=== PATIENT | female | born 1950 | race Caucasian/White ===

== ENCOUNTER 2022-02-11 10:01 | Outpatient (CLI) | payer MEDICARE, BC, SELFPAY | END 2022-02-11 10:02 | disposition home or self-care (01) | LOC: INJ CL 10:04 | PROVIDERS: PCP Family Medicine; Visit Provider Family Medicine | DX: M54.16 Radiculopathy, lumbar region (principal); M51.36 Other intervertebral disc degeneration, lumbar region | CPT/HCPCS: 62323; J0702; Q9966 ==

== ENCOUNTER 2022-10-10 18:19 | Emergency (ER) | payer MEDICARE, BC, SELFPAY ==
[2022-10-10 18:25] VITALS: BP 156/61; PULSE 70; RESP 34; TEMP 36.6; O2SAT 98
--- NOTE | 2022-10-10 18:37 | CRLHL7_ITS ---
For Patients: As a result of the Cures Act, medical imaging exams and procedure reports are released immediately into your electronic medical record. You may view this report before your referring provider. If you have questions, please contact your health care provider. INDICATION: Shortness of breath. COMPARISON: 11/24/2016. FINDINGS: PA and lateral views of the chest were obtained. The cardiac silhouette and pulmonary vasculature are within normal limits. The lungs are clear bilaterally. There is scoliosis and degenerative changes in the spine. There are atherosclerotic calcifications in the aorta. IMPRESSION: No evidence of acute pulmonary disease. Dictated by Med Olvrea MD @ 10/10/2022 7:23:35 PM (Electronically Signed)
--- NOTE | 2022-10-10 19:01 | ED.GENADULT ---
HPI - General Adult General Chief complaint: Weakness <Enedina Reyna MD - Last Filed: 10/10/22 20:02> Stated complaint: Weakness <Enedina Reyna MD - Last Filed: 10/10/22 20:02> Time Seen by Provider: 10/10/22 18:36 <Enedina Reyna MD - Last Filed: 10/10/22 20:02> Source: patient <Enedina Reyna MD - Last Filed: 10/10/22 20:02> Mode of arrival: ambulatory <Enedina Reyna MD - Last Filed: 10/10/22 20:02> Limitations: no limitations <Enedina Reyna MD - Last Filed: 10/10/22 20:02> History of Present Illness HPI narrative: 72-year-old female coming in today complaining of generalized not feeling well for about a year. Feeling does come and go. She feel shaky sometimes and nauseated. She has had a decreased appetite. She does sleep well at night. She states that she was diagnosed with hyperthyroidism recently and she has an appointment with endocrinology in November for further testing. In the meantime she states that they put her on atenolol to help with her symptoms. She is concerned and wanted to see someone sooner so she came to the ER. She states that she has lost a significant amount of weight in the last 9 months. She feels very tired most of the day. She feels like her muscles are always fatigued it much sooner than normal. She states that she has a hard time even doing things like finishing grocery shopping because her legs feel so tired. She is not certain if her symptoms are because of her untreated hyper thyroidism or if there is something else going on. She does deny chest pain but states that she is constantly short of breath. States that she smokes about 3/4 to a pack of cigarettes per day for the last 55 years, shortness of breath is not new for her. She denies any abdominal discomfort, no recent vomiting. She has diarrhea that alternates with constipation which is not new. She denies any urinary symptoms. Past medical history significant for hyperthyroidism, hypertension, hyperlipidemia, depression, asthma. <Enedina Reyna MD - Last Filed: 10/10/22 20:02> Related Data Home medications: Home Medications Medication Instructions Recorded Confirmed amlodipine 5 mg tablet 5 mg PO DAILY 10/10/22 10/10/22 atenolol 50 mg tablet 50 mg PO DAILY 10/10/22 10/10/22 famotidine 20 mg tablet 20 mg PO BID 10/10/22 10/10/22 losartan 100 mg tablet 100 mg PO DAILY 10/10/22 10/10/22 meloxicam 15 mg tablet 15 mg PO DAILY 10/10/22 10/10/22 rosuvastatin 20 mg tablet 20 mg PO QPM 10/10/22 10/10/22 sertraline 100 mg tablet 100 mg PO BID 10/10/22 10/10/22 tiotropium bromide 2.5 2 puff inhalation DAILY 10/10/22 10/10/22 mcg/actuation mist for inhalation (Spiriva Respimat) <Enedina Reyna MD - Last Filed: 10/10/22 20:02> Allergies/adverse reactions: Allergies Allergy/AdvReac Type Severity Reaction Status Date / Time lisinopril Allergy Dry Mucus Verified 10/10/22 18:34 Membranes <Eendina Reyna MD - Last Filed: 10/10/22 20:02> Review of Systems Status of ROS: Reports: 10 or more systems reviewed and unremarkable except as noted in History and below <Enedina Reyna MD - Last Filed: 10/10/22 20:02> [facility] Social History: Social History Smoking Status: Current every day smoker What tobacco products do you use: cigarettes Smoking packs per day: 0.75 Smoking cigarettes per day: 15.0 Do you use any of these nicotine containing products: None and E-Cigarettes Second hand tobacco smoke exposure: No How often do you have a drink containing alcohol: monthly or less How many standard drinks containing alcohol do you have on a typical day: 1 or 2 AUDIT-C Alcohol total score: 1 Non-prescribed substance use: denies use <Enedina Reyna MD - Last Filed: 10/10/22 20:02> Exam Narrative: Exam Narrative: Thin, well-developed elderly patient in no acute distress. Alert and oriented. Answers questions appropriately. Mood and affect are appropriate. Thoughts are goal oriented and rational. No tangential or magical thinking noted. Patient speaks in full sentences without needing to catch her breath. I recheck her respiratory rate and it was 24. HEENT: Normocephalic atraumatic. Pupils are equally round reactive to light. Extraocular muscles are intact. Conjunctivae are moist without any icterus noted. Moist mucous membranes. Posterior pharynx is normal. Neck is soft without any lymphadenopathy or thyromegaly. No masses are appreciated. Cardiovascular: Heart is regular rate and rhythm S1 and S2 are present without any murmurs. Lungs: Slightly decreased breath sounds bilaterally without any wheezes, rhonchi or rales appreciated. She takes deep breaths without discomfort. Abdomen: Soft and nontender nondistended with normal bowel sounds. Extremities: Bilateral lower extremities are without edema. Normal DP and PT pulses. Skin: Well perfused without any obvious rashes. <Enedina Reyna MD - Last Filed: 10/10/22 20:02> Const: Vital Signs, click to edit/add: Vital Signs - 24 hr 10/10/22 18:25 Temperature 97.9 F Pulse Rate [Pulse Oximeter] 70 Respiratory Rate 34 H Blood Pressure [Ri ght Upper Arm] 156/61 H Pulse Oximetry 98 Oxygen Delivery Me thod Room Air <Enedina Reyna MD - Last Filed: 10/10/22 20:02> Vital Signs, click to edit/add: Vital Signs - 24 hr 10/10/22 18:25 Temperature 97.9 F Pulse Rate [Pulse Oximeter] 70 Respiratory Rate 34 H Blood Pressure [Ri ght Upper Arm] 156/61 H Pulse Oximetry 98 Oxygen Delivery Me thod Room Air <Jose Mckee MD - Last Filed: 10/10/22 20:54> Course Course Hospital Course: IV was established patient received 500 mL of normal saline. EKG, read by me, shows normal sinus rhythm with a short WI interval and a pulse of 70. Two-view chest, read by me, does not show any acute pathology. Labs so far unremarkable. TSH (which per patient's given history I do expect will be abnormal) and UA pending at this time. Care will be transferred to oncoming physician. <Enedina Reyan MD - Last Filed: 10/10/22 20:02> Reevaluation(s) Reevaluation #1: UA unremarkable. TSH remains suppressed. Ready for discharge. <Jose Mckee MD - Last Filed: 10/10/22 20:54> Vital Signs Vital signs: Initial Vital Signs Temperature 97.9 F 10/10/22 18:25 Temperature Source Temporal Artery Scan 10/10/22 18:25 Pulse Rate 70 10/10/22 18:25 Respiratory Rate 34 H 10/10/22 18:25 Blood Pressure 156/61 H 10/10/22 18:25 Blood Pressure Mean 92 10/10/22 18:25 Blood Pressure Position Sitting 10/10/22 18:25 Pulse Oximetry 98 10/10/22 18:25 Oxygen Delivery Method Room Air 10/10/22 18:25 Vital Signs Temperature 97.9 F 10/10/22 18:25 Pulse Rate 70 10/10/22 18:25 Respiratory Rate 34 H 10/10/22 18:25 Blood Pressure 156/61 H 10/10/22 18:25 Pulse Oximetry 98 10/10/22 18:25 Oxygen Delivery Method Room Air 10/10/22 18:25 Temperature 97.9 F 10/10/22 18:25 Pulse Rate 70 10/10/22 18:25 Respiratory Rate 34 H 10/10/22 18:25 Blood Pressure 156/61 H 10/10/22 18:25 Pulse Oximetry 98 10/10/22 18:25 Oxygen Delivery Method Room Air 10/10/22 18:25 <Enedina Reyna MD - Last Filed: 10/10/22 20:02> Initial Vital Signs Temperature 97.9 F 10/10/22 18:25 Temperature Source Temporal Artery Scan 10/10/22 18:25 Pulse Rate 70 10/10/22 18:25 Respiratory Rate 34 H 10/10/22 18:25 Blood Pressure 156/61 H 10/10/22 18:25 Blood Pressure Mean 92 10/10/22 18:25 Blood Pressure Position Sitting 10/10/22 18:25 Pulse Oximetry 98 10/10/22 18:25 Oxygen Delivery Method Room Air 10/10/22 18:25 Vital Signs Temperature 97.9 F 10/10/22 18:25 Pulse Rate 70 10/10/22 18:25 Respiratory Rate 34 H 10/10/22 18:25 Blood Pressure 156/61 H 10/10/22 18:25 Pulse Oximetry 98 10/10/22 18:25 Oxygen Delivery Method Room Air 10/10/22 18:25 Temperature 97.9 F 10/10/22 18:25 Pulse Rate 70 10/10/22 18:25 Respiratory Rate 34 H 10/10/22 18:25 Blood Pressure 156/61 H 10/10/22 18:25 Pulse Oximetry 98 10/10/22 18:25 Oxygen Delivery Method Room Air 10/10/22 18:25 <Jose Mckee MD - Last Filed: 10/10/22 20:54> Medical Decision Making MDM Narrative Medical decision making narrative: 72-year-old female not feeling well for quite some time, recent diagnosis of hyperthyroidism, 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 I do think that her symptoms are all likely due to her recent diagnosis as I do not see any other abnormality today so far. Did discuss with patient that she needs to follow-up with endocrinology as scheduled and go from there. <Enedina Reyna MD - Last Filed: 10/10/22 20:02> Lab Data Labs: Lab Results 10/10/22 10/10/22 Range/Units 18:50 20:07 WBC 9.31 (4.50-11.00) K/uL RBC 4.19 (4.00-5.20) m/uL Hgb 11.2 L (12.0-16.0) gm/dL Hct 35.3 (33.0-51.0) % MCV 84 (80-100) fL MCH 27 (26-34) pg MCHC 32 (32-36) gm/dL RDW Coeff of Linda 13.6 (11.5-15.5) % Plt Count 327 (140-440) K/uL Neut % (Auto) 63.5 (42.0-72.0) % Lymph % (Auto) 24.8 (20-44) % Weber % (Auto) 9.9 (0.0-11.0) % Eos % (Auto) 1.4 (0.0-7.0) % Baso % (Auto) 0.3 (0.0-3.0) % Neut # (Auto) 5.91 (1.7-7.0) K/uL Lymph # (Auto) 2.31 (0.90-2.90) K/uL Weber # (Auto) 0.90 (0.00-0.90) K/UL Eos # (Auto) 0.13 (0.00-0.50) K/uL Baso # (Auto) 0.03 (0.00-0.30) K/uL ESR 81 H (2-20) mm/hr Sodium 140 (135-149) mmol/L Potassium 3.8 (3.6-5.1) mmol/L Chloride 103 (96-114) mmol/L Carbon Dioxide 29 (20-32) mmol/L BUN 25 (7-30) mg/dL Creatinine 0.6 (0.5-1.5) mg/dL Estimated Creat Clear 46.61 Estimated GFR 95 ml/min Glucose 94 (60-115) mg/dL Lactate 0.8 (0.5-1.9) mmol/L Calcium 10.3 (8.4-10.6) mg/dL Total Bilirubin 0.3 (0.1-1.5) mg/dL Direct Bilirubin 0.3 (0.0-0.5) mg/dL AST 24 (12-35) U/L ALT 18 (4-35) U/L Alkaline Phosphatase 72 (40-150) U/L C-Reactive Protein 2.4 H (0.5-1.0) mg/dL Total Protein 7.6 (6.0-8.3) g/dL Albumin 4.2 (3.3-5.0) g/dL Lipase 88 (23-300) U/L TSH < 0.015 L (0.270-4.20) uIU/mL Urine Color Yellow (Yellow) Urine Appearance Clear (Clear) Urine pH 5.5 (5.0-8.5) Ur Specific [place] 1.020 (1.000-1.030) Urine Protein 1+ A (Negative) Urine Glucose (UA) Negative (Negative) Urine Ketones Trace A (Negative) Urine Blood Negative (Negative) Urine Nitrite Negative (Negative) Urine Bilirubin Negative (Negative) Urine Urobilinogen 0.2 (0.2-1.0) Ur Leukocyte Esterase Trace A (Negative) Urine RBC 0-2 (0-2) Urine WBC 0-2 (0-5) Ur Squamous Epith Cells Few (None-Few) Urine Bacteria None (None) Hyaline Casts Few (None-Few) Urine Mucus Few A (None) Ethyl Alcohol < 0.01 L (0.01-0.03) % SARS-CoV-2 (PCR) Negative SARS-CoV-2 (Negative) Influenza Type A (PCR) Negative PCR FLU A (Negative) Influenza Type B (PCR) Negative PCR FLU B (Negative) POC Troponin I 0.01 (0.01-0.04) ng/ml <Enedina Reyna MD - Last Filed: 10/10/22 20:02> Lab Results 10/10/22 10/10/22 Range/Units 18:50 20:07 WBC 9.31 (4.50-11.00) K/uL RBC 4.19 (4.00-5.20) m/uL Hgb 11.2 L (12.0-16.0) gm/dL Hct 35.3 (33.0-51.0) % MCV 84 (80-100) fL MCH 27 (26-34) pg MCHC 32 (32-36) gm/dL RDW Coeff of Linda 13.6 (11.5-15.5) % Plt Count 327 (140-440) K/uL Neut % (Auto) 63.5 (42.0-72.0) % Lymph % (Auto) 24.8 (20-44) % Weber % (Auto) 9.9 (0.0-11.0) % Eos % (Auto) 1.4 (0.0-7.0) % Baso % (Auto) 0.3 (0.0-3.0) % Neut # (Auto) 5.91 (1.7-7.0) K/uL Lymph # (Auto) 2.31 (0.90-2.90) K/uL Weber # (Auto) 0.90 (0.00-0.90) K/UL Eos # (Auto) 0.13 (0.00-0.50) K/uL Baso # (Auto) 0.03 (0.00-0.30) K/uL ESR 81 H (2-20) mm/hr Sodium 140 (135-149) mmol/L Potassium 3.8 (3.6-5.1) mmol/L Chloride 103 (96-114) mmol/L Carbon Dioxide 29 (20-32) mmol/L BUN 25 (7-30) mg/dL Creatinine 0.6 (0.5-1.5) mg/dL Estimated Creat Clear 46.61 Estimated GFR 95 ml/min Glucose 94 (60-115) mg/dL Lactate 0.8 (0.5-1.9) mmol/L Calcium 10.3 (8.4-10.6) mg/dL Total Bilirubin 0.3 (0.1-1.5) mg/dL Direct Bilirubin 0.3 (0.0-0.5) mg/dL AST 24 (12-35) U/L ALT 18 (4-35) U/L Alkaline Phosphatase 72 (40-150) U/L C-Reactive Protein 2.4 H (0.5-1.0) mg/dL Total Protein 7.6 (6.0-8.3) g/dL Albumin 4.2 (3.3-5.0) g/dL Lipase 88 (23-300) U/L TSH < 0.015 L (0.270-4.20) uIU/mL Urine Color Yellow (Yellow) Urine Appearance Clear (Clear) Urine pH 5.5 (5.0-8.5) Ur Specific [place] 1.020 (1.000-1.030) Urine Protein 1+ A (Negative) Urine Glucose (UA) Negative (Negative) Urine Ketones Trace A (Negative) Urine Blood Negative (Negative) Urine Nitrite Negative (Negative) Urine Bilirubin Negative (Negative) Urine Urobilinogen 0.2 (0.2-1.0) Ur Leukocyte Esterase Trace A (Negative) Urine RBC 0-2 (0-2) Urine WBC 0-2 (0-5) Ur Squamous Epith Cells Few (None-Few) Urine Bacteria None (None) Hyaline Casts Few (None-Few) Urine Mucus Few A (None) Ethyl Alcohol < 0.01 L (0.01-0.03) % SARS-CoV-2 (PCR) Negative SARS-CoV-2 (Negative) Influenza Type A (PCR) Negative PCR FLU A (Negative) Influenza Type B (PCR) Negative PCR FLU B (Negative) POC Troponin I 0.01 (0.01-0.04) ng/ml <Jose Mckee MD - Last Filed: 10/10/22 20:54> Imaging Data Chest x-ray: Attestation: I have reviewed the pertinent imaging results. <Enedina Reyna MD - Last Filed: 10/10/22 20:02> Radiologist's impression: FINDINGS: PA and lateral views of the chest were obtained. The cardiac silhouette and pulmonary vasculature are within normal limits. The lungs are clear bilaterally. There is scoliosis and degenerative changes in the spine.? There are atherosclerotic calcifications in the aorta. IMPRESSION: No evidence of acute pulmonary disease. 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 <Enedina Reyna MD - Last Filed: 10/10/22 20:02> Activity Level: No Restrictions <Enedina Reyna MD - Last Filed: 10/10/22 20:02> No Restrictions <Jose Mckee MD - Last Filed: 10/10/22 20:54> Discharge Diet: Regular <Enedina Reyna MD - Last Filed: 10/10/22 20:02> Regular <Jose Mckee MD - Last Filed: 10/10/22 20:54> Prescriptions: No Action meloxicam 15 mg tablet 15 mg PO DAILY sertraline 100 mg tablet 100 mg PO BID amlodipine 5 mg tablet 5 mg PO DAILY famotidine 20 mg tablet 20 mg PO BID losartan 100 mg tablet 100 mg PO DAILY atenolol 50 mg tablet 50 mg PO DAILY rosuvastatin 20 mg tablet 20 mg PO QPM Spiriva Respimat 2.5 mcg/actuation mist 2 puff INHALATION DAILY <Enedina Reyna MD - Last Filed: 10/10/22 20:02> Follow Up/Referrals: Lucy Martínez DO [Primary Care Provider] - <Enedina Reyna MD - Last Filed: 10/10/22 20:02> Stand Alone Forms: [facility] Info Instructions <Enedina Reyna MD - Last Filed: 10/10/22 20:02>
[2022-10-10 19:04] LABS: Lactate* 0.8 mmol/L (0.5-1.9)
[2022-10-10 19:05] LABS: Basophils Absolute Auto 0.03 K/uL (0.00-0.30); Basophils Percent Auto 0.3 % (0.0-3.0); Eosinophils Absolute Auto 0.13 K/uL (0.00-0.50); Eosinophils Percent Auto 1.4 % (0.0-7.0); Hematocrit 35.3 % (33.0-51.0); Hemoglobin* 11.2 gm/dL (12.0-16.0); Immature Granulocytes Abs Auto 0.01 K/uL (0.00-0.30); Immature Granulocytes Pct Auto 0.1 %; Lymphocytes Absolute Auto 2.31 K/uL (0.90-2.90); Lymphocytes Percent Auto 24.8 % (20-44); Mean Corpuscular HGB Conc 32 gm/dL (32-36); Mean Corpuscular Hemoglobin 27 pg (26-34); Mean Corpuscular Volume 84 fL (80-100); Monocytes Percent Auto 9.9 % (0.0-11.0); Neutrophils Absolute Auto 5.91 K/uL (1.7-7.0); Neutrophils Percent Auto 63.5 % (42.0-72.0); Platelet Count* 327 K/uL (140-440); RDW Coefficient of Variation % 13.6 % (11.5-15.5); Red Blood Count 4.19 m/uL (4.00-5.20); Slide Review Reflex No; White Blood Count* 9.31 K/uL (4.50-11.00)
[2022-10-10 19:17] LABS: Chloride* 103 mmol/L (96-114); Sodium* 140 mmol/L (135-149)
[2022-10-10 19:18] LABS: Albumin* 4.2 g/dL (3.3-5.0); Potassium* 3.8 mmol/L (3.6-5.1); Troponin, Point-of-Care* 0.01 ng/ml (0.01-0.04)
[2022-10-10 19:21] LABS: Alanine Aminotransferase* 18 U/L (4-35); Alkaline Phosphatase* 72 U/L (40-150); Aspartate Amino Transferase* 24 U/L (12-35); Bilirubin Direct* 0.3 mg/dL (0.0-0.5); Bilirubin Total* 0.3 mg/dL (0.1-1.5); Blood Urea Nitrogen* 25 mg/dL (7-30); Calcium* 10.3 mg/dL (8.4-10.6); Carbon Dioxide* 29 mmol/L (20-32); Creatinine* 0.6 mg/dL (0.5-1.5); Est. Creatinine Clearance* 46.61; Estimated Glomerular Filt Rate 95 ml/min; Glucose* 94 mg/dL (60-115); Lipase* 88 U/L (23-300); Total Protein* 7.6 g/dL (6.0-8.3)
[2022-10-10] MEDS: 0.9 % SODIUM CHLORIDE 500 ML 500 ML IV (19:22)
[2022-10-10 19:24] LABS: C Reactive Protein* 2.4 mg/dL (0.5-1.0)
[2022-10-10 19:27] LABS: Ethanol* < 0.01 % (0.01-0.03)
[2022-10-10 19:41] LABS: Erythrocyte SedimentationRate* 81 mm/hr (2-20)
[2022-10-10 19:47] LABS: PCR FLU A Negative PCR FLU A (Negative); PCR FLU B Negative PCR FLU B (Negative); SARS PCR* Negative SARS-CoV-2 (Negative)
[2022-10-10 20:25] LABS: Appearance Urine Clear (Clear); Bilirubin Urine Negative (Negative); Blood Urine Negative (Negative); Color Urine Yellow (Yellow); Glucose Urine Negative (Negative); Ketones Urine Trace (Negative); Leukocyte Esterase Urine Trace (Negative); Nitrite Urine Negative (Negative); Protein Urine 1+ (Negative); Urobilinogen Urine 0.2 (0.2-1.0); pH Urine 5.5 (5.0-8.5)
[2022-10-10 20:30] LABS: Thyroid Stimulating Hormone* < 0.015 uIU/mL (0.270-4.20)
[2022-10-10 20:46] LABS: Hyaline Casts Urine Few (None-Few); RBC Urine 0-2 (0-2); Squamous Epithelial Cell Urine Few (None-Few); WBC Urine 0-2 (0-5)
[2022-10-10 20:47] LABS: Mucus Urine Few
== END 2022-10-10 21:05 | disposition home or self-care (01) ==
PROVIDERS: Emergency Provider Family Medicine; PCP Family Medicine
DX: R53.1 Weakness (principal)
CPT/HCPCS: 36415; 71046; 80048; 80076; 81001; 82077; 83605; 83690; 84443; 84484; 85025; 85651; 86140; 87086; 87631; 93005; 99284; J7120

== ENCOUNTER 2023-06-10 11:00 | Outpatient (RCR) | payer MEDICARE, BC, SELFPAY | END 2023-06-10 11:48 | disposition home or self-care (01) | PROVIDERS: PCP Family Medicine; Visit Provider Family Medicine | DX: M54.16 Radiculopathy, lumbar region (principal); M54.50 Low back pain, unspecified; G89.29 Other chronic pain; M62.81 Muscle weakness (generalized); M48.061 Spinal stenosis, lumbar region without neurogenic claudication; Z51.89 Encounter for other specified aftercare | CPT/HCPCS: 97110; 97112; 97140; 97162; 97530 ==

== ENCOUNTER 2023-07-08 11:18 | Outpatient (CLI) | payer MEDICARE, BC, SELFPAY ==
--- NOTE | 2023-07-08 11:15 | CRLHL7_ITS ---
For Patients: As a result of the Century Cures Act, medical imaging exams and procedure reports are released immediately into your electronic medical record. You may view this report before your referring provider. If you have questions, please contact your health care provider. INDICATION : Thyroid nodule. TECHNIQUE : Ultrasound-guided fine needle aspiration of thyroid nodule. Comparison : 08/07/2022 FINDINGS : PROCEDURE: After the informed consent and time-out, multiple fine needle aspirations were obtained from the thyroid nodule. Fine needle performed. 25 gauge needles were used. Lidocaine was used for local anesthesia. The preliminary cytology was adequate for interpretation. Real-time imaging was used for guidance and needle placement. Post imaging ultrasound demonstrates no immediate complication. IMPRESSION : Successful fine needle aspiration of right thyroid nodule. Dictated by Liam Heck MD @ 07/08/2023 12:26:53 PM (Electronically Signed)
== END 2023-07-08 11:19 | disposition home or self-care (01) ==
LOC: US 11:20
PROVIDERS: PCP Family Medicine; Visit Provider Student in an Organized Health Care Education/Training Program
DX: E04.1 Nontoxic single thyroid nodule (principal)
CPT/HCPCS: 10005; 88173

== ENCOUNTER 2023-10-07 11:03 | Outpatient (CLI) | payer MEDICARE, BC, SELFPAY ==
--- NOTE | 2023-10-07 11:15 | US_ITS ---
Patient: CARA COLEMAN Facility:?[facility] Patient ID:?[id number] Site Patient ID:?[id number]. Site :?[id number] Study:?US-Thyroid Procedure DR SANCHEZ TO READ-10/07/2023 12:05:26 PM Ordering Physician:?JINNY KOENIG Final Report: INDICATION : REPEAT RIGHT THYROID NODULE FNA FOR GENOMIC TESTING TECHNIQUE : Ultrasound-guided fine needle aspiration of thyroid nodule. Comparison : 09/11/2023, 07/08/2023 FINDINGS : PROCEDURE: After the informed consent and time-out, multiple fine needle aspirations were obtained from the thyroid nodule. Fine needle performed. 25 gauge needles were used. No complications. Lidocaine was used for local anesthesia. The preliminary cytology was adequate for interpretation. Real-time imaging was used for guidance and needle placement. Post imaging ultrasound demonstrates no immediate complication. IMPRESSION : Successful fine needle aspiration of thyroid nodule. Dictated by Liam Sanchez MD @ 10/07/2023 1:27:47 PM Signed by:?Liam Sanchez MD @10/07/2023 1:27:47 PM (Electronic Signature)
== END 2023-10-07 11:04 | disposition home or self-care (01) ==
LOC: US 11:04
PROVIDERS: PCP Family Medicine; Visit Provider Student in an Organized Health Care Education/Training Program
DX: E04.1 Nontoxic single thyroid nodule (principal)
CPT/HCPCS: 10005; 88173

== ENCOUNTER 2024-04-29 07:28 | Outpatient (CLI) | payer MEDICARE, BC, SELFPAY | END 2024-04-29 07:29 | disposition home or self-care (01) | LOC: INJ CL 07:30 | PROVIDERS: PCP Family Medicine; Visit Provider Family Medicine | DX: M54.16 Radiculopathy, lumbar region (principal); M51.369 Other intervertebral disc degeneration, lumbar region without mention of lumbar back pain or lower extremity pain | CPT/HCPCS: 64483; J1100; Q9966 ==

== ENCOUNTER 2024-06-13 10:18 | Outpatient (CLI) | payer MEDICARE, BC, SELFPAY ==
--- NOTE | 2024-06-13 10:15 | CRLHL7_ITS ---
For Patients: As a result of the Century Cures Act, medical imaging exams and procedure reports are released immediately into your electronic medical record. You may view this report before your referring provider. If you have questions, please contact your health care provider. INDICATION : Increasing size of right thyroid lobe nodule TECHNIQUE : Ultrasound-guided fine needle aspiration of thyroid nodule. Comparison : 05/24/2024 FINDINGS : PROCEDURE: After the informed consent and time-out, multiple fine needle aspirations were obtained from the thyroid nodule. Fine needle performed. 25 gauge needles were used. Lidocaine was used for local anesthesia. The preliminary cytology was adequate for interpretation. Real-time imaging was used for guidance and needle placement. Post imaging ultrasound demonstrates no immediate complication. IMPRESSION : Successful fine needle aspiration of right thyroid nodule. Dictated by Liam Heck MD @ 06/13/2024 1:33:20 PM (Electronically Signed)
== END 2024-06-13 10:19 | disposition home or self-care (01) ==
LOC: US 10:19
PROVIDERS: PCP Family Medicine; Visit Provider Student in an Organized Health Care Education/Training Program
DX: E04.1 Nontoxic single thyroid nodule (principal)
CPT/HCPCS: 10005; 88173

== ENCOUNTER 2024-10-18 10:50 | Outpatient (CLI) | payer MEDICARE, BC, SELFPAY | END 2024-10-18 10:51 | disposition home or self-care (01) | LOC: INJ CL 10:52 | PROVIDERS: PCP Family Medicine; Visit Provider Family Medicine | DX: M54.16 Radiculopathy, lumbar region (principal); M47.816 Spondylosis without myelopathy or radiculopathy, lumbar region; M51.26 Other intervertebral disc displacement, lumbar region | CPT/HCPCS: 62323; J0702; Q9966 ==